=== PATIENT | male | born 1955 ===

== ENCOUNTER 2022-10-05 06:23 | Day surgery (SDC) | payer MEDICARE ==
[~2022-10-05 06:23] MED LIST: Proparacaine 0.5% Ophth Soln 15 ML Bottle ONE
[2022-10-05] MEDS ORDERED: Sodium Chloride 0.9% 10 ML Syringe IV ONE (06:24)
[2022-10-05] MEDS ORDERED: Dexamethasone 4 MG/ML SDV IV ONE (06:24)
[2022-10-05] MEDS ORDERED: Midazolam 1 MG/ML 2 ML SDV IV ONE (06:24)
[2022-10-05] MEDS ORDERED: Phenylephrine 10% Ophth Soln 5 ML Bot EYERT PRN (06:30)
[2022-10-05] MEDS ORDERED: Povidone-Iodine 5% Sterile Ophth Soln 30 ML Bottle EYERT ONE ×3 (06:30→07:59)
[2022-10-05] MEDS ORDERED: Acetaminophen 325 MG Tab PO PRN (06:30)
[2022-10-05] MEDS ORDERED: Timolol Maleate 0.5% Ophth Soln 5 ML Bottle EYERT ONE (06:30)
[2022-10-05] MEDS ORDERED: Ondansetron 4 MG/2 ML SDV IVPUSH PRN (06:30)
[2022-10-05] MEDS ORDERED: Acetaminophen/Codeine 300-30 MG Tab PO PRN (06:30)
[2022-10-05] MEDS ORDERED: Moxifloxacin 0.5% Ophth Soln 3 ML Bottle EYERT ONE ×2 (06:30→06:53)
[2022-10-05] MEDS ORDERED: Cataract Ophth Solution EYERT ONE (06:30)
[2022-10-05] MEDS ORDERED: Sodium Chloride 0.9% 10 ML Syringe FLUSH PRN (06:30)
[2022-10-05] MEDS ORDERED: Tropicamide 1% Ophth Soln 15 ML Bottle EYERT ONE (06:30)
[2022-10-05] MEDS ORDERED: Proparacaine 0.5% Ophth Soln 15 ML Bottle EYERT ONE ×3 (06:30→07:59)
[2022-10-05] MEDS ORDERED: Apraclonidine 0.5% Ophth Soln 5 ML Bot EYERT ONE ×2 (06:34→07:59)
[2022-10-05] MEDS ORDERED: Diclofenac Sodium 0.1% Ophth Soln 5 ML Bottle EYERT ONE ×2 (06:35→08:00)
[2022-10-05] MEDS ORDERED: Dexamethasone/Neomycin/Polymyxin B Ophth Oint 3.5 GM Tube EYERT ONE ×2 (06:35→08:00)
[2022-10-05] MEDS ORDERED: Lidocaine 1% 30 ML SDV ONE ×2 (06:37→08:00)
[2022-10-05] MEDS ORDERED: Balanced Salt Solution Ophth Irrig 500 ML Bottle IOCULAR ONE ×2 (06:38→08:00)
[2022-10-05] MEDS ORDERED: Vancomycin 500 MG SDV EYERT ONE ×2 (06:38→08:00)
[2022-10-05] MEDS ORDERED: Chondroitin Sulfate/Hyaluronate Sodium Ophth Inj 0.75 ML Syringe EYERT ONE ×2 (06:39→08:00)
== END 2022-10-05 09:08 | disposition home or self-care (01) ==
LOC: DL.SDS 06:23
PROVIDERS: ATTEND Ophthalmology
DX: H25.811 Combined forms of age-related cataract, right eye (principal); I10 Essential (primary) hypertension; E78.5 Hyperlipidemia, unspecified; E87.1 Hypo-osmolality and hyponatremia; F17.210 Nicotine dependence, cigarettes, uncomplicated; I72.3 Aneurysm of iliac artery; Z98.890 Other specified postprocedural states; Z79.899 Other long term (current) drug therapy; Z79.82 Long term (current) use of aspirin
CPT/HCPCS: A9270-GY; J1100; J2250; J3370; J3490